=== PATIENT | male | born 1950 | race Caucasian/White ===

== ENCOUNTER 2019-04-30 14:52 | Inpatient (IN) | payer OTHER ==
[~2019-04-30] VITALS: Ht 182.9 cm; Wt 98.9 kg
[2019-04-30 14:53] VITALS: BP 136/85
[2019-04-30 15:28] LABS: ABSOLUTE NEUTROPHILS 6.3 thou/uL (1.4-8.2); BASOPHILS 0.4 % (0.0-2.0); EOSINOPHILS 1.9 % (0.0-3.0); LYMPHOCYTES 18.5 % (24.0-44.0); MCH 32.6 pg (26.0-34.0); MCHC 33.3 g/dL (28.0-37.0); MCV 98.1 fL (80.0-100.0); MONOCYTES 7.9 % (1.0-8.0); PLATELET COUNT 320 thou/uL (150-400); POLYS 71.3 % (36.0-66.0); RBC 2.75 mil/uL (4.50-6.00); RDW 15.8 % (10.5-14.5); WBC 8.8 thou/uL (4.0-11.0)
[2019-04-30] MEDS ORDERED: FOLIC ACID1 MG PO (15:37)
[2019-04-30] MEDS ORDERED: LISINOPRIL2.5 M1 PO (15:37)
[2019-04-30] MEDS ORDERED: ALLOPURINOL 10100 M1 PO (15:37)
[2019-04-30] MEDS ORDERED: LIPITOR40 MG PO (15:37)
[2019-04-30] MEDS ORDERED: ASA81BEC PO (15:37)
[2019-04-30] MEDS ORDERED: PLAVIX 75 MG TA75 MG PO (15:37)
[2019-04-30] MEDS ORDERED: LASIX 40 MG TAB40 MG PO (15:37)
[2019-04-30] MEDS ORDERED: SERTRALINE HCL100 MG PO (15:38)
[2019-04-30] MEDS ORDERED: VITAMIN D22000 UNIT PO (15:38)
[2019-04-30] MEDS ORDERED: SENNA PLUS TAB1 EACH PO (15:38)
[2019-04-30] MEDS ORDERED: FLOMAX0.4 MG PO (15:39)
[2019-04-30] MEDS ORDERED: TYLENOL325 MG PO (15:39)
[2019-04-30] MEDS ORDERED: DEPAKOTE ER500 M1 PO (15:39)
[2019-04-30] MEDS ORDERED: OLANZAPINE2.5 MG PO (15:39)
[2019-04-30] MEDS ORDERED: LEVEMIR FL100 UNIT/2 SUBQ (15:40)
[2019-04-30] MEDS ORDERED: IBUPROFEN 600600 M1 PO (15:40)
[2019-04-30] MEDS ORDERED: NOVOLOG FL100 UNIT/M SUBQ (15:40)
[2019-04-30 15:41] LABS: CALCIUM 8.2 mg/dL (8.5-10.1); CREATININE 1.8 mg/dL (0.7-1.3); POTASSIUM 3.8 mmol/L (3.5-5.1)
[2019-04-30] MEDS ORDERED: NOVOLOG100 UNIT/1 SUBQ (15:41)
[2019-04-30 15:50] LABS: ALBUMIN 2.7 g/dL (3.4-5.0); TOTAL BILIRUBIN 0.2 mg/dL (<0.1-1.0); TOTAL PROTEIN 6.6 g/dL (6.4-8.2); TROPONIN-I 0.07 ng/mL (<0.06)
[2019-04-30 17:52] LABS: URINE BILIRUBIN NEGATIVE (Negative); URINE BLOOD NEGATIVE (Negative); URINE CLARITY CLEAR; URINE COLOR YELLOW; URINE GLUCOSE-RANDOM* NEGATIVE (Negative); URINE KETONES NEGATIVE (Negative); URINE LEUKOCYTES-REFLEX NEGATIVE (Negative); URINE NITRITE-REFLEX NEGATIVE (Negative); URINE PROTEIN (DIPSTICK) NEGATIVE (Negative); URINE SPECIFIC GRAVITY 1.015 (1.005-1.035); URINE UROBILINOGEN 0.2 E.U./dl (0.2-1.0)
[2019-04-30 18:52] VITALS: BP 101/44
[2019-04-30 20:30] VITALS: BP 128/76
[2019-04-30] MEDS ORDERED: MELATONIN3 M1 PO (20:37)
[2019-04-30] MEDS ORDERED: VITAMIN B-121000 MC2 PO (20:39)
[2019-04-30] MEDS ORDERED: LEVEMIR100 UNIT/2 SUBQ (20:43)
[2019-05-01 00:14] VITALS: BP 153/66
--- NOTE | 2019-05-01 03:58 | NUR ---
PATIENTS CARES WERE ASSUMED AT DELIVERY FROM THE ED. PATIENT WAS ASSESSD AND MEDS WERE PASSED. PATIENT AT THIS TIME IS FLUXUATING FROM AFLUTTER TO SR. PATIENT CALLS OUT IF HE NEEDS TO VOID. PATIENT HAS BEEN SHOWN HOW TO USE THE CALL LIGHT SEVERAL TIMES HOWEVER HE CONTINUES TO CALL OUT. HOURLY ROUNDS WERE DONE. THE BED IS IN A LOW AND LOCKED POSITION, THE BED ALARM IS ON
[2019-05-01 04:24] VITALS: BP 157/63
[2019-05-01 06:00] LABS: BASOPHILS 0.4 % (0.0-2.0); HEMATOCRIT 27.6 % (42.0-52.0); HEMOGLOBIN 9.3 gm/dL (14.0-18.0); LYMPHOCYTES 26.7 % (24.0-44.0); MCHC 33.7 g/dL (28.0-37.0); MCV 97.8 fL (80.0-100.0); MONOCYTES 6.6 % (1.0-8.0); PLATELET COUNT 324 thou/uL (150-400); POLYS 65.3 % (36.0-66.0); RBC 2.82 mil/uL (4.50-6.00); WBC 7.6 thou/uL (4.0-11.0)
[2019-05-01 06:34] LABS: CALCIUM 8.6 mg/dL (8.5-10.1); CREATININE 1.5 mg/dL (0.7-1.3); MAGNESIUM 1.6 mg/dL (1.8-2.4); POTASSIUM 4.2 mmol/L (3.5-5.1)
[2019-05-01 08:28] VITALS: BP 126/60
[2019-05-01 13:00] VITALS: BP 139/56
--- NOTE | 2019-05-01 15:03 | NUR ---
Patient admits from [facility] with syncopal episode at facility. patient grunts answers "yes" plan to return to [facility]. patient reports he wears oxygen at facility. Left message on [facility] RN line to call casemgt. Called DON at facility. he does not believe patient wears oxygen at facility. Requested [facility] fax face sheet and clinical as not rec on chart. patients face sheet not accurate patient does not reside at [facility]. Called reg admitting twice [phone] to alert to change face sheet and phone rang with NO answer. Will reattempt. Sp with brother who lives in [place] and updated.
--- NOTE | 2019-05-01 15:26 | NUR ---
ASSUMED CARE PT SHIFT CHANGE. ASSESSMENTS CHARTED. MEDS GIVEN PER MAR. PT ALERT AND ORIENTED X2-3. VSS. PT FORGETFUL. DENIES PAIN. O2 SATS WNL ON 3L O2 AND ROOM AIR. DENIES SOB/CP. PT UP WITH PHYS THERAPY TOLERATING WELL. PT APPETITE ADEQUATE. US CAROTIDS THIS SHIFT- SEE RESULTS. PROVIDER AWARE. PT CURRENTLY RESTING IN BED DENYING OF NEEDS. WILL CONT TO MONITOR AND FOLLOW POC.
[2019-05-01 15:30] VITALS: BP 119/54
--- NOTE | 2019-05-01 17:17 | EKG ---
[facility] [place] [place] [address] ELECTROCARDIOGRAM REPORT Name: RAYNA NOWAK Room #: 201-P ADM IN M.R.#: [id number] Admission: 04/30/19 Attend Phys: Ryan Fuentes MD Discharge: Date of : 48 Report #: [id number] THIS REPORT FOR: cc: Bola Bush MD, Dennis R MD Couchonnal, Luis F. MD ~ THIS REPORT FOR: //name// [facility] ED Test Date: 2019-04-30 Test Time: 15:00:15 Pat Name: RAYNA NOWAK Department: Room: 201 Gender: M Student Support Services Director: [place] : 1950 Requested By: Roel Coleman Order Number: [id number] MD: Reid Prince Measurements Intervals [place] Rate: 68 P: NM: QRS: -48 QRSD: 127 T: 93 QT: 482 QTc: 513 Interpretive Statements Atrial fibrillation IVCD, consider atypical RBBB Probable anterior infarct, age indeterminate No previous ECG available for comparison Electronically Signed On 05-01-2019 17:16:40 CDT by Reid Prince [email or web address] <ELECTRONICALLY SIGNED> By: Reid Prince MD 05/01/19 1716 1500 1500 Reid Prince MD /EPI
--- NOTE | 2019-05-01 17:21 | EKG ---
[facility] [place] [address] ELECTROCARDIOGRAM REPORT Name: RAYNA NOWAK Room #: 201-P ADM IN M.R.#: [id number] Admission: 04/30/19 Attend Phys: Ryan Fuentes MD Discharge: Date of : 48 Report #: [id number] THIS REPORT FOR: cc: Bola Bush MD, Dennis R MD Couchonnal, Luis F. MD ~ THIS REPORT FOR: //name// [facility] Test Date: 2019-05-01 Test Time: 08:38:29 Pat Name: RAYNA NOWAK Department: Room: 201 P Gender: M Commanding Officer Garage: Ancelmo MCDANIELS : 1950 Requested By: Danielle Addison Order Number: [id number] MD: Reid Prince Measurements Intervals [place] Rate: 66 P: 101 DE: 63 QRS: -49 QRSD: 112 T: 91 QT: 439 QTc: 460 Interpretive Statements Atrial fibrillation. Electronically Signed On 05-01-2019 17:20:27 CDT by Reid Prince [email or web address] <ELECTRONICALLY SIGNED> By: Reid Prince MD [id number] Reid Prince MD /SYLVESTER
[2019-05-01 19:47] VITALS: BP 10/54; BP 120/54
[2019-05-02 04:38] VITALS: BP 147/52
--- NOTE | 2019-05-02 05:33 | NUR ---
PT A&O X3 ORIENTED TO PERSON, PLACE AND SITUATION ONLY.HX OF DEMENTIA. ASSIST X1-2. CONT USES URINAL NEEDS ASSISTANCE. DENIES PAIN. ACHS. 02 3L PER NC.
[2019-05-02 06:20] LABS: HEMOGLOBIN 8.6 gm/dL (14.0-18.0); MCV 96.9 fL (80.0-100.0); RBC 2.69 mil/uL (4.50-6.00); WBC 6.4 thou/uL (4.0-11.0)
[2019-05-02 06:29] LABS: CALCIUM 8.3 mg/dL (8.5-10.1); CREATININE 1.4 mg/dL (0.7-1.3); MAGNESIUM 1.8 mg/dL (1.8-2.4); POTASSIUM 4.5 mmol/L (3.5-5.1)
[2019-05-02 06:53] LABS: TSH 0.835 uIU/mL (0.358-3.740)
[2019-05-02 07:25] VITALS: BP 152/49
[2019-05-02 07:57] LABS: % SATURATION 58 % (20-39); IRON 130 ug/dL (65-175); TIBC 224 ug/dL (250-450)
[2019-05-02 11:40] VITALS: BP 155/125
[2019-05-02 12:42] VITALS: BP 130/49
--- NOTE | 2019-05-02 13:12 | NUR ---
no planned dc today. [facility] information placed in medical chart. Sp with admission regarding face sheet.
[2019-05-02 16:35] VITALS: BP 119/48
--- NOTE | 2019-05-02 17:01 | NUR ---
ASSUMMED PT CARE AT APPROXIMATELY 0700. PT AWAKE AND ORIENTED TO PERSON, PLACE, AND SITUATION. PT C HX OF DEMENTIA. ASSESSMENT CHARTED. FALL PRECAUTIONS IN PLACE. PT DENIES HAVING CHEST PAIN. PT DENIES HAVING SOB. PT DENIES HAVING ACUTE PAIN. PT EDUCATED ABOUT POC. PT COMFORTABLE. PT DENIES HAVING FURTHER CONCERNS. VITAL SIGNS STABLE. BLOOD SUGARS STABLE.
[2019-05-02 19:40] VITALS: BP 148/55
[2019-05-03 03:30] VITALS: BP 153/60
--- NOTE | 2019-05-03 04:29 | NUR ---
ASSUMED PT CARE AROUND 1900. PT RESTING IN BED. PT ASSESSMENTS CHARTED. PT HAD NO C/O PAIN, N/V/D, OR SOA. PT CALLED OUT APPROPRIATELY TO HAVE NEEDS/CONCERNS MET. PT ATE AND DRANK WELL WHEN PROMPTED TO. PATIENT REPOSITIONED THRU SHIFT. PT HAD NO NOTED DISTRESS THRU NIGHT. WILL CONTINUE TO MONITOR.
[2019-05-03 05:34] LABS: CALCIUM 8.8 mg/dL (8.5-10.1); CREATININE 1.3 mg/dL (0.7-1.3); POTASSIUM 4.7 mmol/L (3.5-5.1)
[2019-05-03 05:36] LABS: HEMATOCRIT 25.4 % (42.0-52.0); HEMOGLOBIN 8.5 gm/dL (14.0-18.0); MCHC 33.7 g/dL (28.0-37.0); MCV 97.9 fL (80.0-100.0); RBC 2.59 mil/uL (4.50-6.00); RDW 15.8 % (10.5-14.5); WBC 6.9 thou/uL (4.0-11.0)
[2019-05-03 07:20] VITALS: BP 155/76
--- NOTE | 2019-05-03 09:55 | NUR ---
FAXED CLINICAL UPDATE TO [facility] SPOKE WITH JIMENA IN ADM SHE RECEIVED UPDATE AND THAT PT PEBBLES. DC TODAY. DP TO FOLLOW.
[2019-05-03 11:05] VITALS: BP 146/107
[2019-05-03] MEDS ORDERED: PULMICORT0.5 MG/21 INH (11:41)
[2019-05-03] MEDS ORDERED: PANTOPRAZOLE SO40 M1 PO (11:41)
[2019-05-03] MEDS ORDERED: MIRALAX17 GM PO (11:41)
[2019-05-03] MEDS ORDERED: ACETAMINOPHEN325 M1 PO (11:41)
[2019-05-03] MEDS ORDERED: IPRAT-ALBUT 0.5-3 ML INH (11:41)
[2019-05-03] MEDS ORDERED: MELATONIN5 M1 PO (11:41)
[2019-05-03] MEDS ORDERED: LEVAQUIN 500 M500 M1 PO (11:41)
[2019-05-03] MEDS ORDERED: MUCINEX600 MG PO (11:41)
--- NOTE | 2019-05-03 13:07 | NUR ---
ASSUMMED PT CARE AT APPROXIMATELY 0700. PT AWAKE AND ORIENTED TO PERSON AND PLACE. PT C HX OF DEMENTIA. PT FREQUENTLY REORIENTED. ASSESSMENT CHARTED. FALL PRECAUTIONS IN PLACE. PT DENIES HAVING CHEST PAIN. PT DENIES HAVING SOB. PT STATED HE HAD A HEADACHE. PT RECLEIVED ANALGESICS. PT STATED HIS HEADACHE WAS RELIEVED. VITAL SIGNS STABLE. BLOOD SUGARS STABLE. PT UP TO CHAIR THROUGHUT SHIFT. PT AMBULATES C ASSIST X2. PT DISCHARGING BACK TO FACILITY AT [facility]. REPORT CALLED AND GIVEN TO NURSE AT [facility]. NURSE STATED UNDERSTANDING AND DENIED HAVING FURTHER QUESTIONS. IV DC. TELE DC. AWAITING MEDICAL TRANSPORT TO ARRIVE TO TRANSPORT PT BACK TO FACILITY. PT COMFORTABLE. PT DENIES HAVING FURTHER CONCERNS.
--- NOTE | 2019-05-03 13:14 | NUR ---
PT DISCHARGING TODAY BACK TO [facility] FAXED DC ORDERS/SUMMARY SPOKE WITH JIMENA ALBA SHE RECEIVED ORDERS. DP ARRANGED TRANSPORT WITH [facility] TRIP #[id number] BY [facility] THEY WILL PICK PT UP BETWEEN [phone] TODAY. PT'S BROTHER NOTIFIED BY DANNI. UNIT NOTIFIED AND CHART COPY PER US. RN TO CALL REPORT TO [phone].
[2019-05-03 15:35] VITALS: BP 113/54
== END 2019-05-03 16:51 | DRG 193 ==
LOC: ER 14:52 → 2N 18:08 → EROBS 18:08 → 2N 19:49
PROVIDERS: Nurse Practitioner; Nurse Practitioner Adult Health; Physician Assistant; ADMIT Internal Medicine
PROC: 02H633Z Insertion of Infusion Device into Right Atrium, Percutaneous Approach (ICD-10-PCS; principal; 2019-04-30)
DX: J18.9 Pneumonia, unspecified organism (principal); G92 Toxic encephalopathy; J96.21 Acute and chronic respiratory failure with hypoxia; N17.9 Acute kidney failure, unspecified; I48.92 Unspecified atrial flutter; J44.1 Chronic obstructive pulmonary disease with (acute) exacerbation; I42.9 Cardiomyopathy, unspecified; E46 Unspecified protein-calorie malnutrition; I50.32 Chronic diastolic (congestive) heart failure; I69.354 Hemiplegia and hemiparesis following cerebral infarction affecting left non-dominant side; I13.0 Hypertensive heart and chronic kidney disease with heart failure and stage 1 through stage 4 chronic kidney disease, or unspecified chronic kidney disease; R55 Syncope and collapse; N18.2 Chronic kidney disease, stage 2 (mild); F41.9 Anxiety disorder, unspecified; I95.9 Hypotension, unspecified; F17.210 Nicotine dependence, cigarettes, uncomplicated; E86.0 Dehydration; I48.0 Paroxysmal atrial fibrillation; E83.42 Hypomagnesemia; F10.10 Alcohol abuse, uncomplicated; G47.00 Insomnia, unspecified; I25.10 Atherosclerotic heart disease of native coronary artery without angina pectoris; E78.5 Hyperlipidemia, unspecified; F32.9 Major depressive disorder, single episode, unspecified; M10.9 Gout, unspecified; J44.9 Chronic obstructive pulmonary disease, unspecified; N40.0 Benign prostatic hyperplasia without lower urinary tract symptoms; D63.8 Anemia in other chronic diseases classified elsewhere; I65.23 Occlusion and stenosis of bilateral carotid arteries; Z68.29 Body mass index [BMI] 29.0-29.9, adult; Z71.6 Tobacco abuse counseling; Z79.82 Long term (current) use of aspirin; Z79.899 Other long term (current) drug therapy; Z99.81 Dependence on supplemental oxygen; Z79.1 Long term (current) use of non-steroidal anti-inflammatories (NSAID)
CPT/HCPCS: 10081; 27000